=== PATIENT | female | born 1990 | race Caucasian/White ===

== ENCOUNTER 2019-09-02 04:58 | Day surgery (SDC) | payer OTHER ==
[2019-09-01 08:18] VITALS: BMI 17.3
[2019-09-02] MEDS ORDERED: MIDAZOLAM HCL 2 MG/2 ML SINGLE DOSE VIAL ONE (14:11)
[2019-09-02] MEDS ORDERED: PROPOFOL 20 ML ONE (14:11)
[2019-09-02] MEDS ORDERED: PROMETHAZINE HCL 25 MG/1 ML VIAL IVPUSH PRN (14:12)
[2019-09-02] MEDS ORDERED: oxyCODONE HCL 5 MG TABLET PO PRN (14:12)
[2019-09-02] MEDS ORDERED: ONDANSETRON 4 MG/2 ML VIAL IVPUSH PRN (14:12)
[2019-09-02] MEDS ORDERED: KETOROLAC TROMETHAMINE 30 MG/1 ML VIAL ONE (14:13)
[2019-09-02] MEDS ORDERED: DEXAMETHASONE SOD PHOSPHATE 4 MG/1 ML VIAL ONE (14:13)
--- NOTE | 2019-09-02 14:35 | HP ---
History & Physical Update - History History: No Change - Physical Physical: No Change - Assessment Assessment: No Change - Plan Plan: No Change
[2019-09-02] MEDS ORDERED: ceFAZolin SODIUM 1 GM VIAL IVPB ONE (14:47)
--- NOTE | 2019-09-02 17:02 | OP ---
Operative Note - Note: Operative Date: 09/02/19 Pre-Operative Diagnosis: Uterine mass Operation: Hysteroscopy, polypectomy, D&C Findings: Two polypoid growths in the endometrial cavity, each ~2 cm. Post-Operative Diagnosis: Same as Pre-op Surgeon: Jose Downs Anesthesiologist/HOUSE STEWARD/STEWARDESS: Fortino Little Anesthesia: General Specimens Removed: Uterine polyps, endometrial curettings Estimated Blood Loss (mls): 50 Blood Volume Replaced (mls): 0 Fluid Volume Replaced (mls): 1,000 Operative Report Dictated: Yes
[2019-09-02 18:15] VITALS: TEMP 97
[2019-09-02 18:17] VITALS: BP 94/54; PULSE 76
--- NOTE | 2019-09-03 08:42 | OP ---
DATE OF OPERATION: 09/02/2019 PREOPERATIVE DIAGNOSES: Uterine mass and menorrhagia. POSTOPERATIVE DIAGNOSES: Uterine mass and menorrhagia. PROCEDURE: Hysteroscopy, polypectomy, dilatation and curettage. SURGEON: Jose Downs MD ANESTHESIOLOGIST: Fortino Little MD ANESTHESIA: General. COMPLICATIONS: None. INTRAVENOUS FLUIDS: 1000 mL. ESTIMATED BLOOD LOSS: 50 mL. PATHOLOGY: 1. Endometrial polyps. 2. Endometrial curettings. FINDINGS: Examination under anesthesia revealed a small, mobile, anteverted uterus with no pelvic or adnexal masses. Hysteroscopy revealed 2 polypoid growths inside the endometrial cavity, one on the left side, one on the right side, each approximately 2 cm in size. A normal uterine cavity at the end of procedure. PROCEDURE DESCRIPTION: The patient was met preoperatively. Risks, benefits, and alternatives of surgery were discussed in details. All questions were answered. The consent form was reviewed and discussed. The patient verbalized her understanding. The consent form was signed, and the patient requested to proceed with the surgery. She was brought to the OR with the IV running. The patient was placed on a surgical table in the supine position. The general anesthesia was achieved without difficulty. The patient was then placed in a dorsal lithotomy position using adjustable Rasta stirrups. She was examined under anesthesia with the findings as described above. The timeout was conducted as per standard protocol. The patient was then prepped and draped in the usual sterile fashion. A weighted speculum was introduced inside the vagina with good visualization of the cervix. The cervical os was gently dilated to accommodate a size 23 Soto dilator. A Symphion hysteroscope was then used to examine uterine cavity. The hysteroscope was gently advanced through the cervical canal and into the uterine cavity. The examination revealed 2 polypoid growths, approximately 2 cm in size each. A resectoscope was then used to excise both polyps. Once this was accomplished, there was some additional polypoid tissue noted closer to the fundal region. The hysteroscope was removed, and a gentle uterine curettage was performed. Once this was done, the hysteroscope was placed back into the uterine cavity, and a normal uterine cavity was visualized. Both fallopian tube ostia were visualized. Good hemostasis was noted. The hysteroscope was removed from the patient. Sponge, lap, instrument counts were correct. Good hemostasis was once again assured. The patient was returned to supine position. She was then transferred to the recovery room in stable condition and awake. Angel [id number]
--- NOTE | 2019-09-04 17:21 | PATH ---
Surgical Pathology Report Patient Name: HERSON CHAVEZ [facility]. Rec. #: [id number] /Age/Gender: 1990 (Age: 29) / F Account: [id number] Location: [facility] SURGICAL Taken: 09/02/2019 Received: 09/03/2019 Reported: 09/04/2019 Physicians: Jose Downs M.D. Specimen(s) Received A: ENDOMETRIAL CURETTINGS B: ENDOMETRIAL POLYP Clinical History Uterine fibroid Final Diagnosis A. ENDOMETRIAL CURETTINGS, DILATION AND CURETTAGE: FRAGMENTS OF ENDOMETRIAL POLYP, SECRETORY ENDOMETRIUM, AND SCANT ENDOCERVICAL TISSUE. B. ENDOMETRIAL POLYP, HYSTEROSCOPIC RESECTION: FRAGMENTS OF ENDOMETRIAL POLYP, SECRETORY ENDOMETRIUM, AND FIBROMUSCULAR TISSUE SUGGESTIVE OF SUBMUCOSAL LEIOMYOMA. Electronically Signed Blanca Downs M.D. Gross Description A. Received in formalin labeled "endometrial curettings," is a 1.2 x 0.8 x 0.2 cm aggregate of fishman-brown soft tissue fragments. The formalin is filtered and the specimen is entirely submitted in one cassette. B. Received in formalin labeled "endometrial polyp," is a 2.6 x 2.3 x 0.3 cm aggregate of fishman soft tissue fragments admixed with blood clot. The formalin is filtered and the specimen is entirely submitted in one cassette. [facility]
== END 2019-09-02 18:45 | disposition home or self-care (01) ==
LOC: JASU-SURG 04:58
PROVIDERS: ATTEND Obstetrics & Gynecology
PROC: 0UJD8ZZ Inspection of Uterus and Cervix, Via Natural or Artificial Opening Endoscopic (ICD-10-PCS; 2019-09-02)
PROC: 0UB97ZX Excision of Uterus, Via Natural or Artificial Opening, Diagnostic (ICD-10-PCS; principal; 2019-09-02 14:00)
PROC: 0UDB7ZX Extraction of Endometrium, Via Natural or Artificial Opening, Diagnostic (ICD-10-PCS; 2019-09-02 14:00)
DX: N92.0 Excessive and frequent menstruation with regular cycle (principal); N84.0 Polyp of corpus uteri
CPT/HCPCS: 84703; 94760

== ENCOUNTER 2022-10-05 21:20 | Inpatient (IN) | payer OTHER ==
[2022-10-05 21:35] VITALS: RESP 18
[2022-10-05] MEDS ORDERED: BUTORPHANOL TARTRATE 2 MG/ML VIAL IVPUSH ONE (22:19)
[2022-10-05] MEDS ORDERED: PROMETHAZINE HCL 25 MG/1 ML VIAL IVPB ONE (22:19)
[2022-10-05 22:30] LABS: BASO % 0.1 % (0-2.0); HEMATOCRIT 38.7 % (32.4-45.2); LYMPH % 6.1 % (8-40); MCH 31.1 pg (25.7-33.7); MCHC 33.7 g/dl (32.0-36.0); MEAN CELL VOLUME 92.3 fl (80-96); MEAN PLT VOLUME 9.9 fl (7.5-11.1); MONO % 7.4 % (3.8-10.2); NEUT % 86.4 % (42.8-82.8); PLATELET COUNT 262 10^3/uL (134-434); RBC 4.19 M/mm3 (3.60-5.2); RDW 16.5 % (11.6-15.6); WHITE BLOOD COUNT 18.4 K/mm3 (4.0-10.0)
[2022-10-05] MEDS ORDERED: DEXTROSE 5%-LACTATED RINGERS 1,000 ML IV SCH (22:30)
[2022-10-05 22:40] LABS: INR 1.91 (0.83-1.09)
[2022-10-05 22:43] LABS: ACTIVATED PTT 38.4 SECONDS (25.2-36.5)
[2022-10-05 22:58] LABS: BLOOD UREA NITROGEN 14.1 mg/dL (7-18); CALCIUM 8.7 mg/dL (8.5-10.1)
[2022-10-05 23:02] LABS: BILIRUBIN,DIRECT 0.8 mg/dL (0.0-0.2); CREATININE 1.2 mg/dL (0.55-1.3); URIC ACID 7.5 mg/dL (2.6-7.2)
[2022-10-05 23:04] LABS: BILIRUBIN,TOTAL 1.2 mg/dL (0.2-1); TOT PROT 5.8 g/dl (6.4-8.2)
[2022-10-05 23:07] VITALS: BMI 21.1
[2022-10-06 01:44] VITALS: BP 107/76; PULSE 117; TEMP 98.1
== END 2022-10-06 01:50 | disposition short-term general hospital (02) | DRG 566 ==
LOC: JDEL 21:20 → JLDR 22:00
PROVIDERS: ADMIT Obstetrics & Gynecology; ATTEND Obstetrics & Gynecology
DX: O26.893 Other specified pregnancy related conditions, third trimester (principal); Z3A.37 37 weeks gestation of pregnancy; R94.5 Abnormal results of liver function studies; R79.1 Abnormal coagulation profile
CPT/HCPCS: 36415; 80053; 80076; 82570; 82575; 83615; 84156; 84550; 85025; 85384; 85610; 85730; 86708; 86780; 86803; 86850; 86900; 86901; 87340; C9803-CS; U0003; U0005